=== PATIENT | female | born 1955 | race Caucasian/White ===

== ENCOUNTER 2018-02-04 16:55 | Emergency (ER) | payer OTHER ==
[~2018-02-04] VITALS: Ht 167.6 cm; Wt 98.4 kg
--- OUTSIDE RECORDS SUMMARY | ~2018-02-04 | XMS | Clinical Summary ---
Demographics + + + | Address | [address] | | | [place] [address] | + + + | Home Phone | | + + + | Preferred Language | Unknown | + + + | Marital Status | | + + + | Restorationist Affiliation | Unknown | + + + | Race | Unknown | + + + | Ethnic Group | Unknown | + + + Author + + + | Author | [facility] | | | and [place] | + + + | Organization | [facility] | | | and [place] | + + + | Address | Unknown | + + + | Phone | Unavailable | + + + Support + + +---------+ + | Name | Relationship | Address | Phone | + + +---------+ + | Marck Flores | ECON | Unknown | | + + +---------+ + Care Team Providers + +------+ + | Care Oil Change Technician Name | Role | Phone | + +------+ + | Martin Dias MD | PP | | + +------+ + Allergies + + + + + + | Active Allergy | Reactions | Severity | Noted | Comments | | | | | Date | | + + + + + + | Bee Venom | Other (See Comments) | | 05/22/20 | Reaction not | | | | | 17 | specified in outside | | | | | | medical records | + + + + + + | Sulfa Antibiotics | Other (See Comments) | | 05/22/20 | Reaction not | | | | | 17 | specified in outside | | | | | | medical records | | | | | | | + + + + + + Current Medications + + +-------+---------+------+------+-------+ | Prescription | Sig. | Disp. | Refills | Star | End | Statu | | | | | | t | Date | s | | | | | | Date | | | + + +-------+---------+------+------+-------+ | levothyroxine | Take 112 mcg by | | | | | Activ | | (LEVOTHROID) 112 mcg | mouth every morning | | | | | e | | tablet | (before breakfast). | | | | | | + + +-------+---------+------+------+-------+ | | Take 1 tablet by | | | | | Activ | | lisinopril-hydrochlo | mouth Daily. | | | | | e | | rothiazide | | | | | | | | (PRINZIDE,ZESTORETIC | | | | | | | | ) 20-12.5 MG per | | | | | | | | tablet | | | | | | | + + +-------+---------+------+------+-------+ Active Problems + + + | Problem | Noted Date | + + + | Bilateral hand numbness | 05/26/2017 | + + + | Bilateral carpal tunnel syndrome | 05/26/2017 | + + + Family History + + +------+ + | Medical History | Relation | Name | Comments | + + +------+ + | Heart disease | Father | | | + + +------+ + | Cancer | Mother | | | + + +------+ + | Diabetes | Mother | | | + + +------+ + + +------+ + + | Relation | Name | Status | Comments | + +------+ + + | Father | | | | + +------+ + + | Mother | | | | + +------+ + + Social History + +-------+ +--------+------+ | Tobacco Use | Types | Packs/Day | Years | Date | | | | | Used | | + +-------+ +--------+------+ | Never Smoker | | | | | + +-------+ +--------+------+ + +---+---+---+ | Smokeless Tobacco: | | | | | Never Used | | | | + +---+---+---+ + + +---------+ + | Alcohol Use | Drinks/We | oz/Week | Comments | | | ek | | | + + +---------+ + | Yes | | | ocassionally | + + +---------+ + + + + | Sex Assigned at | Date Recorded | | | | + + + | Not on file | | + + + Last Filed Vital Signs + + + + | Vital Sign | Reading | Time Taken | + + + + | Blood Pressure | 99/59 | 05/26/2017 1559 PDT | + + + + | Pulse | 63 | 05/26/20179 PDT | + + + + | Temperature | - | - | + + + + | Respiratory Rate | - | - | + + + + | Oxygen Saturation | - | - | + + + + | Inhaled Oxygen | - | - | | Concentration | | | + + + + | Weight | 111.1 kg (245 lb) | 05/26/20171558 PDT | + + + + | Height | 167.6 cm (5' 6") | 05/26/20171558 PDT | + + + + | Body Mass Index | 39.54 | 05/26/20171558 PDT | + + + + Plan of Treatment + + + + + | Health Maintenance | Due Date | Last Done | Comments | + + + + + | Hepatitis C | | | | | Screening | 8 | | | + + + + + | Vaccine: | | | | | Dtap/Tdap/Td (1 - | 7 | | | | Tdap) | | | | + + + + + | CERVICAL CANCER | | | | | SCREENING (PAP EVERY | 9 | | | | 3 YEARS 21-64 ) | | | | + + + + + | BREAST CANCER | | | | | SCREENING (MAMM Q2 | 8 | | | | YEARS 50-74) | | | | + + + + + | COLON CANCER | | | | | SCREENING | 8 | | | | (COLONOSCOPY EVERY | | | | | 10 YEARS 50-75) | | | | + + + + + | Vaccine: Zoster (#1) | | | | | | 8 | | | + + + + + | Vaccine: Influenza | | | | | (Season Ended) | 8 | | | + + + + + Results Not on filefrom Last 3 Months Insurance +-------+--------+ +------+ + + | Payer | Benefi | Subscriber | Type | Phone | Address | | | t Plan | ID | | | | | | / | | | | | | | Group | | | | | +-------+--------+ +------+ + + | [employer] | MOD[employer] | [phone] | PPO | [phone] [address] [address] | | | [place] | | [phone] | [place] [address] | | | [place] | | | | | | | [place] | | | | | +-------+--------+ +------+ + + + +--------+ +--------+ + + | Guarantor Name | Accoun | Relation to | Date | Phone | Billing Address | | | t Type | Patient | of | | | | | | | | | | + +--------+ +--------+ + + | MARIA GUADALUPE VILLARREAL | Person | Self [birth year] Home: | [address] | | | [place] | | 1956 | [phone] | [place] | | | [place] | | | [phone] | [phone] | + +--------+ +--------+ + +
--- OUTSIDE RECORDS SUMMARY | ~2018-02-04 | XMS | Clinical Summary ---
Demographics + + + | Address | [address] | | | [place] [address] | + + + | Home Phone | | + + + | Preferred Language | Unknown | + + + | Marital Status | | + + + | Spiritism Affiliation | Unknown | + + + | Race | Unknown | + + + | Ethnic Group | Unknown | + + + Author + + + | Author | [facility] | | | and [place] | + + + | Organization | [facility] | | | and [...] Team Providers + +------+ + | Care Wastewater Project Engineer Name | Role | Phone | + [...] | [employer] | [phone] | PPO | [phone] [address] [address] | | | [place] | | | [phone] | [place] [address] | | | [place] | | | [...] | Self [birth year] | Home: | [address] | | | [place] | | 1956 | [phone] | [place] | | | [place] | | | [phone] | [phone] | + +--------+ +--------+ + +
[2018-02-04] MEDS ORDERED: ZOFRAN ODT4 MG PO (17:33)
[2018-02-04] MEDS ORDERED: NORCO 5-325 TA1 EACH PO (17:33)
== END 2018-02-04 17:45 | disposition home or self-care (01) ==
LOC: ED 16:55
DX: S62.632A Displaced fracture of distal phalanx of right middle finger, initial encounter for closed fracture (principal); Z88.2 Allergy status to sulfonamides; W23.0XXA Caught, crushed, jammed, or pinched between moving objects, initial encounter
CPT/HCPCS: 73140; 99283

== ENCOUNTER 2019-04-22 22:46 | Emergency (ER) | payer OTHER ==
[~2019-04-22] VITALS: Ht 167.6 cm; Wt 89.8 kg
[~2019-04-22 22:46] MED LIST: NORCO 5-325 TA1 EACH PO; ZOFRAN ODT4 MG PO
[2019-04-22] MEDS ORDERED: LISINOPRIL-HCT1 EAC1 PO (22:56)
[2019-04-22] MEDS ORDERED: LEVOXYL25 MCG PO (22:56)
[2019-04-22] MEDS ORDERED: VALTREX1000 MG PO (23:23)
== END 2019-04-22 23:38 | disposition home or self-care (01) ==
LOC: ED 22:46
DX: B02.39 Other herpes zoster eye disease (principal); I10 Essential (primary) hypertension; Z90.49 Acquired absence of other specified parts of digestive tract; Z90.89 Acquired absence of other organs; Z88.2 Allergy status to sulfonamides
CPT/HCPCS: 99283

== ENCOUNTER 2019-10-23 22:19 | Emergency (ER) | payer OTHER ==
[~2019-10-23] VITALS: Ht 167.6 cm; Wt 89.8 kg
[~2019-10-23 22:19] MED LIST changes: +LEVOXYL25 MCG PO; +LISINOPRIL-HCT1 EAC1 PO; +VALTREX1000 MG PO
--- OUTSIDE RECORDS SUMMARY | 2019-10-23 22:22 | XMS ---
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 Care History Medical/Surgical 04/26/2019 [facility] - Patient is currently established with [facility]. If patient is seen in the ED during business hours. Please contact CHWs at [facility]. Care Recommendation: This patient has had 5 or more Emergency Department visits in the last 12 months.\T\nbsp; Patient requires education on the scope and purpose of the ED as an acute care provider not a Primary Care Provider and should not be utilized for chronic conditions.\T\nbsp; These are guidelines and the provider should exercise clinical judgment when providing care. E.D. VISIT COUNT (12 MO.) 3 [facility] TOTAL 3 NOTE: Visits indicate total known visits. ED/UCC VISIT TRACKING (12 MO.) 10/23/2019 22:20 [facility] [place] TYPE: Emergency COMPLAINT: - LEG PAIN 04/25/2019 09:01 [facility] [place] TYPE: Emergency COMPLAINT: - RASH DIAGNOSES: - Rash and other nonspecific skin eruption - Essential (primary) hypertension - Adverse effect of antiviral drugs, initial encounter - Acquired absence of other specified parts of digestive tract - Allergy status to sulfonamides status 04/22/2019 22:[address] [facility] [place] TYPE: Emergency COMPLAINT: - EYE SWELLING DIAGNOSES: - Acquired absence of other specified parts of digestive tract - OTHER SPECIFIED DISORDERS OF EYE AND ADNEXA - Essential (primary) hypertension - Other specified disorders of eye and adnexa - Allergy status to sulfonamides status - Other herpes zoster eye disease - Acquired absence of other organs INPATIENT VISIT TRACKING (12 MO.) No inpatient visits to display in this time frame [email or web address]
[2019-10-23] MEDS ORDERED: TRAMADOL HCL50 MG PO (23:34)
== END 2019-10-23 23:49 | disposition home or self-care (01) ==
LOC: ED 22:19
DX: M79.604 Pain in right leg (principal); I10 Essential (primary) hypertension; Z88.8 Allergy status to other drugs, medicaments and biological substances; Z88.2 Allergy status to sulfonamides; Z79.899 Other long term (current) drug therapy
CPT/HCPCS: 93971; 99283-25

== ENCOUNTER 2020-04-06 23:52 | Emergency (ER) | payer OTHER ==
[~2020-04-06] VITALS: Ht 167.6 cm; Wt 102.1 kg
[~2020-04-06 23:52] MED LIST changes: +TRAMADOL HCL50 MG PO
--- OUTSIDE RECORDS SUMMARY | 2020-04-06 23:54 | XMS ---
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 Care History Medical/Surgical 10/25/2019 [facility] Patient seen after clinic hours.\T\nbsp; No follow up appointment scheduled.\T\ nbsp; Left voicemail for call back. 04/26/2019 [facility] - Patient is currently established with [facility]. If patient is seen in the ED during business hours. Please contact CHWs at [facility]. Care Recommendation: This patient has had [...] providing care. E.D. VISIT COUNT (12 MO.) [address] [facility]. TOTAL 4 NOTE: Visits indicate total known visits. ED/UCC VISIT TRACKING (12 MO.) 04/06/2020 23:52 [facility] [place] TYPE: Emergency COMPLAINT: - IRREGULAR HEART RATE 10/23/2019 22:20 [facility] [place] TYPE: Emergency COMPLAINT: - LEG PAIN DIAGNOSES: - Pain in right leg - Allergy status to other drugs, medicaments and biological sub - Essential (primary) hypertension - Allergy status to sulfonamides status - Other termite helper (current) drug therapy 04/25/2019 09:01 [facility] [place] TYPE: Emergency COMPLAINT: - RASH DIAGNOSES: - Rash and other nonspecific skin eruption - Essential (primary) hypertension - Adverse effect of antiviral drugs, initial encounter - Acquired absence of other specified parts of digestive tract - Allergy status to sulfonamides status 04/22/2019 22:46 [facility] [place] TYPE: Emergency COMPLAINT: - EYE SWELLING [...] visits to display in this time frame [email or web address]
--- NOTE | 2020-04-07 10:04 | EKG ---
[facility] [address] [place], [place] [address] Signed Normal sinus rhythm Cannot rule out Anterior infarct , age undetermined Abnormal ECG No previous ECGs available Confirmed by MIGUEL CLEANING DO ([id number]) on 04/07/2020 10:04:22 AM Electronically Signed By: MIGUEL CLEANING DO 04/07/20 1004 PATIENT NAME: NICHOLE ISIDRO Electrocardiogram DATE OF : 59 PHYSICIAN: MIGUEL CLEANING DO REPORT #: [id number] REPORT IS CONFIDENTIAL AND NOT TO BE RELEASED WITHOUT AUTHORIZATION
== END 2020-04-07 01:48 | disposition home or self-care (01) ==
LOC: ED 23:52
DX: R00.2 Palpitations (principal); I10 Essential (primary) hypertension; E03.9 Hypothyroidism, unspecified; Z88.2 Allergy status to sulfonamides; Z88.6 Allergy status to analgesic agent; Z79.899 Other long term (current) drug therapy
CPT/HCPCS: 93005; 93010; 99285-25